=== PATIENT | female | born 1995 | race Caucasian/White ===

== ENCOUNTER → 2019-03-27 | Outpatient (REF) ==
--- NOTE | 2019-03-27 16:26 | Diagnostic Imaging Report ---
INDICATION: Fall with right arm pain. TIME OF EXAM: 3:53 p.m. Multiple views of the right humerus were obtained. Alignment at the shoulder and elbow appears normal. Humerus is intact. No fractures are seen. IMPRESSION: No acute bony abnormality is detected. Dictated by: Dictated on workstation # [id number]
== END | disposition home or self-care (01) ==
LOC: OCC 15:36
PROVIDERS: ATTEND Nurse Practitioner Family
CPT/HCPCS: 73060

== ENCOUNTER → 2019-10-17 | Outpatient (CLI) | payer BC, OTHER ==
--- NOTE | 2019-10-17 16:17 | Diagnostic Imaging Report ---
INDICATION: Foot pain. COMPARISON: None. FINDINGS: Three views of the right foot demonstrate no acute fracture or dislocation. There are no focal osseous lesions. There is no soft tissue swelling. Joint spaces are well maintained. No radiopaque foreign bodies are seen. IMPRESSION: No acute fractures or dislocations of the right foot. Dictated by: Dictated on workstation # [id number]
== END ==
LOC: RAD 15:50
PROVIDERS: ATTEND Nurse Practitioner Family
DX: M79.671 Pain in right foot (principal)
CPT/HCPCS: 73630

== ENCOUNTER 2020-07-24 15:20 | Outpatient (CLI) | payer BC | END 2020-07-24 15:45 | disposition home or self-care (01) | LOC: SLEEP 15:20 | PROVIDERS: ATTEND Family Medicine | DX: G47.10 Hypersomnia, unspecified (principal) | CPT/HCPCS: G0399 ==

== ENCOUNTER → 2020-09-08 | Outpatient (CLI) | payer BC | LOC: LABNPT 08:19 | PROVIDERS: ATTEND Internal Medicine Critical Care Medicine | DX: Z20.822 Contact with and (suspected) exposure to COVID-19 (principal) | CPT/HCPCS: 87635 ==

== ENCOUNTER 2020-09-11 20:48 | Outpatient (CLI) | payer BC | END 2020-09-12 06:52 | disposition home or self-care (01) | LOC: SLEEP 20:48 | PROVIDERS: ATTEND Nurse Practitioner Family | DX: G47.33 Obstructive sleep apnea (adult) (pediatric) (principal); D50.0 Iron deficiency anemia secondary to blood loss (chronic); Z20.822 Contact with and (suspected) exposure to COVID-19 | CPT/HCPCS: 87635; 95811 ==